=== PATIENT | male | born 1940 | race Caucasian/White ===

== ENCOUNTER 2018-06-19 16:44 | Inpatient (IN) | payer OTHER ==
[~2018-06-19] VITALS: Ht 180.3 cm; Wt 115.7 kg
[2018-06-19] MEDS ORDERED: ASPI81CH PO (17:05)
[2018-06-19] MEDS ORDERED: CARB100 (17:06)
[2018-06-19] MEDS ORDERED: CARBI50 (17:07)
[2018-06-19] MEDS ORDERED: VITAMIN B-121000 MCG PO (17:10)
[2018-06-19] MEDS ORDERED: CHOL10002 PO (17:10)
[2018-06-19] MEDS ORDERED: LORPSEER24 PO (17:11)
[2018-06-19] MEDS ORDERED: PREG200 PO (17:12)
[2018-06-19] MEDS ORDERED: SELE1.25 PO (17:13)
[2018-06-19] MEDS ORDERED: SILD50TA PO (17:15)
[2018-06-19] MEDS ORDERED: IBUP800 PO (17:18)
[2018-06-19] MEDS ORDERED: TERA5 PO (22:15)
[2018-06-19 22:36] LABS: Source, Urine Clean Catch
[2018-06-19 22:39] LABS: Blood, Urine 1+ (Neg); Glucose Qualitative, Urine Neg (Neg); Ketones, Urine 1+ (Neg); Leukocyte Esterase, Urine 1+ (Neg); Nitrite, Urine Pos (Neg); Protein, Urine 2+ (Neg); Specific Gravity, Urine 1.015 (1.003-1.022); Urobilinogen, Urine 4+ (Normal)
[2018-06-19 22:41] LABS: Bilirubin, Urine 2+ (Neg); Color, Urine Amber (P-Yellow)
[2018-06-19 22:42] LABS: Appearance, Urine Hazy (Clear)
[2018-06-19 22:45] LABS: Bacteria Mod /hpf; Red Blood Cells, Urine 0-2 /hpf (0-2); Squamous Epithelial Cells Not Seen /hpf (Few); White Blood Cells, Urine 0-2 /hpf (0-5)
[2018-06-20 04:21] LABS: Hematocrit 39.7 % (37.0-53.0); Hemoglobin 14.1 g/dL (13.5-17.5); Mean Corpuscular HGB 33.1 pg (26.0-34.0); Mean Corpuscular HGB Conc 35.5 g/dL (31.5-36.5); Mean Corpuscular Volume 93 fL (80-100); Mean Platelet Volume 10.6 fL (9.1-12.4); Platelet Count 171 K/mm3 (150-400); RDW Coefficient Variation 13.2 % (11.7-14.2); RDW Standard Deviation 44.8 fL (35.1-46.3); Red Blood Cell Count 4.26 M/mm3 (4.30-5.90); White Blood Cell Count 13.13 K/mm3 (4.00-11.30)
[2018-06-20 04:46] LABS: Alanine Aminotransfer (ALT/SGP 26 U/L (12-78); Albumin, Blood 2.9 g/dL (3.4-5.0); Albumin/Globulin Ratio 0.9 (0.8-1.8); Alk Phos 130 U/L (50-136); Anion Gap 9 mmol/L (6-16); Aspartate Aminotrans (AST/SGOT 109 U/L (12-37); Bilirubin, Total 7.8 mg/dL (0.1-1.0); Blood Urea Nitrogen 21 mg/dL (8-24); Bun/Creatinine Ratio 19.4 (12.0-20.0); CO2, Blood 24 mmol/L (21-32); Calcium, Blood 7.9 mg/dL (8.5-10.1); Chloride, Blood 106 mmol/L (98-108); Creatinine, Blood 1.08 mg/dL (0.60-1.20); Globulin, Blood 3.3 g/dL (2.2-4.0); Glomerular Filtration Rate >60 (60-); Glucose, Blood 126 mg/dL (70-99); Potassium, Blood 3.6 mmol/L (3.5-5.5); Sodium, Blood 139 mmol/L (136-145); Total Protein, Blood 6.2 g/dL (6.4-8.2)
[2018-06-20 05:06] LABS: BAND PERCENT MAN 20 % (0-8); BASOPHILS PERCENT MAN 0 % (0-2); EOSINOPHILS PERCENT MAN 0 % (0-6); LYMPHOCYTES ABSOLUTE MAN 0.26 K/mm3 (0.84-5.20); LYMPHOCYTES PERCENT MAN 2 % (21-46); MONOCYTES ABSOLUTE MAN 0.26 K/mm3 (0.16-1.47); MONOCYTES PERCENT MAN 2 % (4-13); SEG NEUTROPHILS PERCENT MAN 76 % (41-73); TOTAL CELLS COUNTED 100
== END 2018-06-20 18:56 | disposition short-term general hospital (02) | DRG 446 ==
LOC: ER 16:44 → SURS 20:45 → ENPENDDIS 06-20 16:38 → SURS 06-20 18:56
PROVIDERS: Nurse Practitioner Acute Care
DX: K80.20 Calculus of gallbladder without cholecystitis without obstruction (principal); G47.33 Obstructive sleep apnea (adult) (pediatric); G20 Parkinson's disease; G62.9 Polyneuropathy, unspecified; E66.9 Obesity, unspecified; Z68.33 Body mass index [BMI] 33.0-33.9, adult; Z79.82 Long term (current) use of aspirin; Z79.899 Other long term (current) drug therapy; Z88.0 Allergy status to penicillin; Z87.891 Personal history of nicotine dependence
CPT/HCPCS: 36415; 76705; 80053; 81001; 83605; 83690; 85025; 87040; 87086; 94762; 96365; 96367; 96375; 99285-25; J0697; J0744; J2060; J3010; J7030

== ENCOUNTER 2021-05-23 14:49 | Emergency (ER) | payer OTHER ==
[~2021-05-23] VITALS: Ht 177.8 cm; Wt 108.9 kg
[~2021-05-23 14:49] MED LIST: ASPI81CH PO; CARB100; CARBI50; CHOL10002 PO; IBUP800 PO; LORPSEER24 PO; PREG200 PO; SELE1.25 PO; SILD50TA PO; TERA5 PO; VITAMIN B-121000 MCG PO; Vibramycin100 MG PO
== END 2021-05-23 18:50 | disposition home or self-care (01) ==
LOC: ER 14:49
DX: M25.552 Pain in left hip (principal); S50.312A Abrasion of left elbow, initial encounter; S60.812A Abrasion of left wrist, initial encounter; S80.212A Abrasion, left knee, initial encounter; S61.411A Laceration without foreign body of right hand, initial encounter; G20 Parkinson's disease; G62.9 Polyneuropathy, unspecified; Z87.891 Personal history of nicotine dependence; Z88.0 Allergy status to penicillin; Z79.82 Long term (current) use of aspirin; Z79.899 Other long term (current) drug therapy; Z96.642 Presence of left artificial hip joint; V43.53XA Car driver injured in collision with pick-up truck in traffic accident, initial encounter; Y92.410 Unspecified street and highway as the place of occurrence of the external cause
CPT/HCPCS: 73502; 99283-25; A9270

== ENCOUNTER 2021-07-05 12:08 | Emergency (ER) | payer OTHER ==
[~2021-07-05] VITALS: Ht 180.3 cm; Wt 108.9 kg
[2021-07-05 13:18] LABS: BASOPHILS ABSOLUTE AUTO 0.05 K/mm3 (0.00-0.23); BASOPHILS PERCENT AUTO 1 % (0-2); EOSINOPHILS ABSOLUTE AUTO 0.28 K/mm3 (0.00-0.68); EOSINOPHILS PERCENT AUTO 4 % (0-6); Hematocrit 30.4 % (37.0-53.0); Hemoglobin 10.4 g/dL (13.5-17.5); IMMATURE GRAN ABSOLUTE AUTO 0.05 K/mm3 (0.00-0.10); IMMATURE GRAN PERCENT AUTO 1 % (0-1); LYMPHOCYTES ABSOLUTE AUTO 0.93 K/mm3 (0.84-5.20); LYMPHOCYTES PERCENT AUTO 14 % (21-46); MONOCYTES ABSOLUTE AUTO 0.45 K/mm3 (0.16-1.47); MONOCYTES PERCENT AUTO 7 % (4-13); Mean Corpuscular HGB 33.7 pg (26.0-34.0); Mean Corpuscular HGB Conc 34.2 g/dL (31.5-36.5); Mean Corpuscular Volume 98 fL (80-100); Mean Platelet Volume 10.8 fL (9.1-12.4); NEUTROPHILS ABSOLUTE AUTO 4.78 K/mm3 (1.96-9.15); NEUTROPHILS PERCENT AUTO 73 % (41-73); Platelet Count 199 K/mm3 (150-400); RDW Coefficient Variation 13.5 % (11.7-14.2); RDW Standard Deviation 48.6 fL (35.1-46.3); Red Blood Cell Count 3.09 M/mm3 (4.30-5.90); White Blood Cell Count 6.54 K/mm3 (4.00-11.30)
[2021-07-05 13:41] LABS: Alanine Aminotransfer (ALT/SGP 7 U/L (12-78); Albumin/Globulin Ratio 0.9 (0.8-1.8); Alk Phos 126 U/L (50-136); Anion Gap 4 mmol/L (6-16); Aspartate Aminotrans (AST/SGOT 13 U/L (12-37); Bilirubin, Total 0.8 mg/dL (0.1-1.0); Blood Urea Nitrogen 53 mg/dL (8-24); Bun/Creatinine Ratio 62.1 (12.0-20.0); CO2, Blood 24 mmol/L (21-32); Calcium, Blood 8.5 mg/dL (8.5-10.1); Chloride, Blood 115 mmol/L (98-108); Creatinine, Blood 0.85 mg/dL (0.60-1.20); Globulin, Blood 3.5 g/dL (2.2-4.0); Glomerular Filtration Rate >60 (60-); Glucose, Blood 148 mg/dL (70-99); Potassium, Blood 4.1 mmol/L (3.5-5.5); Sodium, Blood 143 mmol/L (136-145); Total Protein, Blood 6.5 g/dL (6.4-8.2)
[2021-07-06] MEDS ORDERED: Ropinirole HCl1 MG PO (11:49)
== END 2021-07-05 18:25 | disposition home or self-care (01) ==
LOC: ER 12:08
PROVIDERS: Student in an Organized Health Care Education/Training Program
DX: G20 Parkinson's disease (principal); G62.9 Polyneuropathy, unspecified; R26.9 Unspecified abnormalities of gait and mobility; Z74.09 Other reduced mobility; Z88.0 Allergy status to penicillin; Z79.899 Other long term (current) drug therapy; Z79.82 Long term (current) use of aspirin
CPT/HCPCS: 70450; 80053; 83735; 85025; 93005; 93010; 99285-25

== ENCOUNTER 2022-04-13 10:33 | Day surgery (SDC) | payer OTHER ==
[~2022-04-13] VITALS: Ht 177.8 cm; Wt 111.5 kg
[~2022-04-13 10:33] MED LIST changes: +FINA5 PO; +OMEGA-3 1,0501 EACH PO; +ROPI.25 PO; +Ropinirole HCl1 MG PO
--- NOTE | 2022-04-13 11:04 | NUR ---
04/13/22 1104 Janis Lam 1059, [place]SA[place] 1053 TO LEFT EYE BY [facility].NE
== END 2022-04-13 12:23 | disposition home or self-care (01) ==
LOC: ORSCSDS 10:33
PROVIDERS: Ophthalmology
PROC: 08RK3JZ Replacement of Left Lens with Synthetic Substitute, Percutaneous Approach (ICD-10-PCS; principal; 2022-04-13 12:00)
DX: H25.13 Age-related nuclear cataract, bilateral (principal); H52.202 Unspecified astigmatism, left eye; Z87.891 Personal history of nicotine dependence; G47.33 Obstructive sleep apnea (adult) (pediatric); I10 Essential (primary) hypertension; G20 Parkinson's disease; E66.9 Obesity, unspecified; Z68.35 Body mass index [BMI] 35.0-35.9, adult; Z79.899 Other long term (current) drug therapy
CPT/HCPCS: J2001; J2250; J3010; J3301; J7040; V2632

== ENCOUNTER 2022-05-30 08:25 | Day surgery (SDC) | payer OTHER ==
[~2022-05-30] VITALS: Ht 177.8 cm; Wt 111.2 kg
[2022-05-30] MEDS ORDERED: MELATONIN5 M1 PO (09:19)
[2022-05-30] MEDS ORDERED: FERSU300 PO (09:19)
[2022-05-30] MEDS ORDERED: ASCO500 PO (09:20)
--- NOTE | 2022-05-30 09:27 | NUR ---
05/30/22 0927 Hima Liz CALL CLEMENTE WITHIN REACH. TETRACAINE AT 0921 IN RIGHT EYE AND PLEDGETT AT 0923
== END 2022-05-30 11:07 | disposition home or self-care (01) ==
LOC: ORSCSDS 08:25
PROVIDERS: Ophthalmology
PROC: 08RJ3JZ Replacement of Right Lens with Synthetic Substitute, Percutaneous Approach (ICD-10-PCS; principal; 2022-05-30 10:00)
DX: H25.11 Age-related nuclear cataract, right eye (principal); H52.201 Unspecified astigmatism, right eye; Z87.891 Personal history of nicotine dependence; G47.33 Obstructive sleep apnea (adult) (pediatric); Z79.899 Other long term (current) drug therapy; E66.9 Obesity, unspecified; Z68.35 Body mass index [BMI] 35.0-35.9, adult
CPT/HCPCS: J2001; J2250; J3010; J3301; J7040; V2632

== ENCOUNTER 2022-09-28 10:42 | Inpatient (IN) | payer OTHER ==
[~2022-09-28] VITALS: Ht 182.9 cm; Wt 102.9 kg
[~2022-09-28 10:42] MED LIST changes: +ASCO500 PO; +FERSU300 PO; +MELATONIN5 M1 PO
[2022-09-28 11:45] LABS: BASOPHILS ABSOLUTE AUTO 0.05 K/mm3 (0.00-0.23); BASOPHILS PERCENT AUTO 0 % (0-2); EOSINOPHILS ABSOLUTE AUTO 0.02 K/mm3 (0.00-0.68); EOSINOPHILS PERCENT AUTO 0 % (0-6); Hematocrit 49.6 % (37.0-53.0); Hemoglobin 17.6 g/dL (13.5-17.5); IMMATURE GRAN ABSOLUTE AUTO 0.07 K/mm3 (0.00-0.10); IMMATURE GRAN PERCENT AUTO 1 % (0-1); LYMPHOCYTES ABSOLUTE AUTO 1.04 K/mm3 (0.84-5.20); LYMPHOCYTES PERCENT AUTO 8 % (21-46); MONOCYTES ABSOLUTE AUTO 0.94 K/mm3 (0.16-1.47); MONOCYTES PERCENT AUTO 8 % (4-13); Mean Corpuscular HGB 32.9 pg (26.0-34.0); Mean Corpuscular HGB Conc 35.5 g/dL (31.5-36.5); Mean Corpuscular Volume 93 fL (80-100); Mean Platelet Volume 10.1 fL (9.1-12.4); NEUTROPHILS ABSOLUTE AUTO 10.43 K/mm3 (1.96-9.15); NEUTROPHILS PERCENT AUTO 83 % (41-73); Platelet Count 246 K/mm3 (150-400); RDW Coefficient Variation 13.8 % (11.7-14.2); Red Blood Cell Count 5.35 M/mm3 (4.30-5.90); White Blood Cell Count 12.55 K/mm3 (4.00-11.30)
[2022-09-28 11:53] LABS: Base Excess Venous 0.3 mmol/L; Bicarbonate Venous 24.6 mmol/L (24.0-30.0); pH Blood Venous 7.41 (7.34-7.37)
[2022-09-28 12:26] LABS: Magnesium, Blood 2.1 mg/dL (1.6-2.4)
[2022-09-28 12:28] LABS: Albumin, Blood 3.6 g/dL (3.4-5.0); Bilirubin, Total 1.5 mg/dL (0.1-1.0); Bun/Creatinine Ratio 21.3 (12.0-20.0); Creatinine, Blood 0.94 mg/dL (0.60-1.20); Globulin, Blood 3.5 g/dL (2.2-4.0); Potassium, Blood 3.9 mmol/L (3.5-5.5); Thyroid Stimulating Hormone 2.54 uIU/mL (0.360-4.800); Total Protein, Blood 7.1 g/dL (6.4-8.2)
[2022-09-28 12:29] LABS: Influenza A, PCR NEGATIVE (NEGATIVE); Influenza B, PCR NEGATIVE (NEGATIVE); Resp Syncytial Virus, PCR NEGATIVE (NEGATIVE); SARS-Cov-2 (COVID-19) PCR, MMC NEGATIVE (NEGATIVE)
[2022-09-28 13:01] LABS: Source, Urine Straight Cath
[2022-09-28 13:09] LABS: Appearance, Urine Clear (Clear); Bilirubin, Urine Neg (Neg); Blood, Urine 3+ (Neg); Color, Urine Amber (P-Yellow); Glucose Qualitative, Urine Neg (Neg); Ketones, Urine 2+ (Neg); Leukocyte Esterase, Urine Neg (Neg); Nitrite, Urine Neg (Neg); Protein, Urine 3+ (Neg); Specific Gravity, Urine 1.025 (1.003-1.022); Urobilinogen, Urine 1+ (Normal)
[2022-09-28 13:28] LABS: Red Blood Cells, Urine 0-2 /hpf (0-2); White Blood Cells, Urine 0-2 /hpf (0-5)
[2022-09-28 13:29] LABS: Amorphous Light (0-Heavy); Bacteria Mod /hpf; Squamous Epithelial Cells Not Seen /hpf (Few)
[2022-09-29 04:03] LABS: BASOPHILS ABSOLUTE AUTO 0.05 K/mm3 (0.00-0.23); BASOPHILS PERCENT AUTO 1 % (0-2); EOSINOPHILS ABSOLUTE AUTO 0.07 K/mm3 (0.00-0.68); EOSINOPHILS PERCENT AUTO 1 % (0-6); Hematocrit 46.7 % (37.0-53.0); Hemoglobin 17.1 g/dL (13.5-17.5); IMMATURE GRAN ABSOLUTE AUTO 0.07 K/mm3 (0.00-0.10); IMMATURE GRAN PERCENT AUTO 1 % (0-1); LYMPHOCYTES ABSOLUTE AUTO 0.97 K/mm3 (0.84-5.20); LYMPHOCYTES PERCENT AUTO 10 % (21-46); MONOCYTES PERCENT AUTO 9 % (4-13); Mean Corpuscular HGB 33.7 pg (26.0-34.0); Mean Corpuscular HGB Conc 36.6 g/dL (31.5-36.5); Mean Corpuscular Volume 92 fL (80-100); Mean Platelet Volume 10.7 fL (9.1-12.4); NEUTROPHILS ABSOLUTE AUTO 7.64 K/mm3 (1.96-9.15); NEUTROPHILS PERCENT AUTO 79 % (41-73); Platelet Count 228 K/mm3 (150-400); RDW Coefficient Variation 13.4 % (11.7-14.2); RDW Standard Deviation 45.9 fL (35.1-46.3); Red Blood Cell Count 5.08 M/mm3 (4.30-5.90)
[2022-09-29 04:09] LABS: Source, Urine Foley catheter
[2022-09-29 04:13] LABS: Bilirubin, Urine Neg (Neg); Blood, Urine 4+ (Neg); Glucose Qualitative, Urine Neg (Neg); Ketones, Urine 3+ (Neg); Leukocyte Esterase, Urine Neg (Neg); Nitrite, Urine Neg (Neg); Protein, Urine 2+ (Neg); Urobilinogen, Urine 2+ (Normal)
[2022-09-29 05:14] LABS: Bun/Creatinine Ratio 17.8 (12.0-20.0); Calcium, Blood 8.9 mg/dL (8.5-10.1); Creatinine, Blood 0.96 mg/dL (0.60-1.20)
[2022-09-29 05:21] LABS: Appearance, Urine Clear (Clear); Color, Urine Yellow (P-Yellow)
[2022-09-29 05:22] LABS: Bacteria Few /hpf; Squamous Epithelial Cells Rare /hpf (Few); White Blood Cells, Urine 0-2 /hpf (0-5)
--- NOTE | 2022-09-29 16:17 | NUR ---
Pt. is in ED and is mostly not responsive. Pt. attempts to get words out, but only grunts, and doesn;t seem to focus. Preayed with Pt. Will continue to be available to Pt.
--- NOTE | 2022-09-29 23:01 | NUR ---
PT ARRIVED TO MEDICAL FLOOR AFTER RECEIVING REPORT FROM ED RN ANIBAL. PT SNORING AND HARDLY RESPONDS WHEN INTRODUCED TO STAFF AND DOES NOT OPEN EYES. PT CHANGED GOWNS AND ATTENDS CHANGED. 2-RN SKIN ASSESSMENT PERFORMED WITH DESTINI SALDANA RN. PT CURRENTLY NPO INCLUDING MEDS D/T ASPIRATION RISK. LR RUNNING @ 75mL/hr. WILL CLARIFY MEDICATION ORDERS WITH PROVIDER. BED ALARM ACTIVATED AND BED RAILS UP, BED IN LOW POSITION AND CALL LIGHT IN REACH. V/S OBTAINED BY TAD MARINO CNA; LOW-GRADE TEMP OF 100.1 AND BP 150/78.
[2022-09-30 05:14] LABS: BASOPHILS ABSOLUTE AUTO 0.04 K/mm3 (0.00-0.23); BASOPHILS PERCENT AUTO 0 % (0-2); EOSINOPHILS ABSOLUTE AUTO 0.03 K/mm3 (0.00-0.68); EOSINOPHILS PERCENT AUTO 0 % (0-6); Hematocrit 48.1 % (37.0-53.0); Hemoglobin 17.6 g/dL (13.5-17.5); IMMATURE GRAN ABSOLUTE AUTO 0.07 K/mm3 (0.00-0.10); IMMATURE GRAN PERCENT AUTO 1 % (0-1); LYMPHOCYTES ABSOLUTE AUTO 1.12 K/mm3 (0.84-5.20); LYMPHOCYTES PERCENT AUTO 9 % (21-46); MONOCYTES ABSOLUTE AUTO 1.01 K/mm3 (0.16-1.47); MONOCYTES PERCENT AUTO 8 % (4-13); Mean Corpuscular HGB 33.4 pg (26.0-34.0); Mean Corpuscular HGB Conc 36.6 g/dL (31.5-36.5); Mean Corpuscular Volume 91 fL (80-100); Mean Platelet Volume 10.6 fL (9.1-12.4); NEUTROPHILS ABSOLUTE AUTO 10.64 K/mm3 (1.96-9.15); NEUTROPHILS PERCENT AUTO 83 % (41-73); Platelet Count 239 K/mm3 (150-400); RDW Coefficient Variation 13.5 % (11.7-14.2); Red Blood Cell Count 5.27 M/mm3 (4.30-5.90); White Blood Cell Count 12.91 K/mm3 (4.00-11.30)
[2022-09-30 05:43] LABS: Albumin, Blood 3.1 g/dL (3.4-5.0); Albumin/Globulin Ratio 0.8 (0.8-1.8); Bilirubin, Total 2.2 mg/dL (0.1-1.0); Bun/Creatinine Ratio 23.3 (12.0-20.0); Calcium, Blood 9.1 mg/dL (8.5-10.1); Creatinine, Blood 0.9 mg/dL (0.60-1.20); Globulin, Blood 3.7 g/dL (2.2-4.0); Potassium, Blood 3.7 mmol/L (3.5-5.5); Total Protein, Blood 6.8 g/dL (6.4-8.2)
--- NOTE | 2022-09-30 06:03 | NUR ---
TANK CLEANER SUMMARY: ORIENTED TO SELF. ALERT PART OF THE TIME; MOSTLY SLEEPING. AWAKE FOR A SHORT AMOUNT OF TIME A COUPLE OF HOURS AFTER BEING ADMITTED DURING WHICH TIME HE CONTINUOUSLY ASKED FOR ASSISTANCE TO GET OUT OF BED TO FIND HIS . CONFUSED. HAS NOT HAD MEDS D/T ED DOC STATING TO HOLD ALL PO MEDS UNTIL SPEECH EVAL DONE THIS AM. LOW-GRADE FEVER NOTED BUT WAS NOT COOPERATIVE WITH ADMINISTRATION OF RECTAL APAP. LR @75mL/hr. WILL REPORT TO ONCOMING RN.
--- NOTE | 2022-09-30 18:16 | NUR ---
PT AOX1-2 WITH CONFUSION AND HALUCINATIONS. PT WILL STARE UP AND CEILING AND THINK HE CAN SEE SOMETHING OR HE TALKS ABOUT NEEDING TO BUY A CARE. PT IS TURNED EVERY COUPLE HOURS FOR REPOSITION. PT HAD HIGH BPs TODAY AND HAS BEEN TREATED PER EMAR. THIS HAS BEEN EFFECTIVE. PT ALSO HAD TEMP 100.6 AND WAS TREATED PER EMAR. NO ORAL MEDS HAVE BEEN GIVEN TODAY DUE TO ASPIRATION RISKS HE FALLS ASLEEP VERY FAST AND DOES NOT STAY ALERT ENOUGH TO SWALLOW SAFELY. PT WAS COUGHING ON WATER ALONE WITH ST. BED ALARM IS IN PLACE WITH CALL LIGHT IN REACH WILL CONTINUE TO MONITOR.
--- NOTE | 2022-10-01 04:20 | NUR ---
SHIFT SUMMARY; PT REMAINS AN ASPIRATION RISK THIS PM. PT WAKES UP FOR A MOMENT WHEN YOU SAY HIS NAME BEFORE HE QUICKLY CLOSES HIS EYES AND FALLS BACK ASLEEP. PT IS AXO X1-2. PT DOES NOT USE CALL LIGHT. PT REPOSITIONED MULTIPLE TIMES THROUGHOUT THE NIGHT. PT REMAINS STABLE ON RA. PT WITH VISUAL HALLUCINATIONS THIS PM, STATES "THERE IS A BEAR ON THE HILL, WATCH OUT". PT CURRENLTY RESTING IN BED WITH THE BED IN THE LOWEST POSITION, LR RUNNING AT 75ML/HR AND THE CALL LIGHT AT BEDSIDE.
[2022-10-01 05:25] LABS: BASOPHILS ABSOLUTE AUTO 0.05 K/mm3 (0.00-0.23); BASOPHILS PERCENT AUTO 0 % (0-2); EOSINOPHILS ABSOLUTE AUTO 0.04 K/mm3 (0.00-0.68); EOSINOPHILS PERCENT AUTO 0 % (0-6); Hematocrit 47.3 % (37.0-53.0); Hemoglobin 17.1 g/dL (13.5-17.5); IMMATURE GRAN ABSOLUTE AUTO 0.08 K/mm3 (0.00-0.10); IMMATURE GRAN PERCENT AUTO 1 % (0-1); LYMPHOCYTES ABSOLUTE AUTO 0.83 K/mm3 (0.84-5.20); LYMPHOCYTES PERCENT AUTO 7 % (21-46); MONOCYTES ABSOLUTE AUTO 1.16 K/mm3 (0.16-1.47); MONOCYTES PERCENT AUTO 10 % (4-13); Mean Corpuscular HGB 33.2 pg (26.0-34.0); Mean Corpuscular HGB Conc 36.2 g/dL (31.5-36.5); Mean Corpuscular Volume 92 fL (80-100); Mean Platelet Volume 10.3 fL (9.1-12.4); NEUTROPHILS ABSOLUTE AUTO 9.39 K/mm3 (1.96-9.15); NEUTROPHILS PERCENT AUTO 81 % (41-73); Platelet Count 232 K/mm3 (150-400); RDW Coefficient Variation 13.5 % (11.7-14.2); RDW Standard Deviation 46.5 fL (35.1-46.3); Red Blood Cell Count 5.15 M/mm3 (4.30-5.90); White Blood Cell Count 11.55 K/mm3 (4.00-11.30)
[2022-10-01 05:45] LABS: Bun/Creatinine Ratio 29.2 (12.0-20.0); Calcium, Blood 9.2 mg/dL (8.5-10.1); Creatinine, Blood 0.86 mg/dL (0.60-1.20); Potassium, Blood 3.6 mmol/L (3.5-5.5)
--- NOTE | 2022-10-01 16:45 | NUR ---
NO ACUTE CHANGES, PT AOX1 AND CONTINUES TO HAVE CONFUSION AND HALLUCINATIONS MISTAKING CAREGIVERS FOR SOMEONE IN HIS PAST. PT IS REPOSTIONED Q2 HRS AND IS INCONTENT. PT WAS HAS BED ALARM IN PLACE AND CALL LIGHT WITHIN REACH WILL CONTINUE TO MONITOR. PT HAS BEEN HIGH AND IS TREATED PER EMAR.
--- NOTE | 2022-10-02 04:35 | NUR ---
SHIFT SUMMARY; NO ACUTE CHANGES OVERNIGHT. PT WAS FEBRILE AT THE BEGINNING OF SHIFT 100.6, MEDICATED WITH A TYLENOL SUPPOSITORY. THE PTS LAST TEMPERATURE WAS 99.8. PT IS STILL UNABLE TO DEMONSTARTE THE ABILITY TO SWALLOW AND OR TAKE IN ANY PO INTAKE, THEREFORE PT REMAINS NPO. THE PT WAS TURNED FREQUENTLY DUE TO THE PTS INABILITY TO CONTROL HIS OWN BODY POSITION. THE PTS LEGS JERK OFETN, OCCASIONALLY THE PTS ARMS JERK WELL. NS REMAINS RUNNING AT 100 MLS AN HOUR. PT STILL HAS NONSENSICAL SPEECH, REFERS TO STAFF DIFFERENT FAMILY MEMBERS. A HEAD SCREEN WORKER IS TO DISCUSS DISCHARGE PLAN WITH PTS AND SON LATER TODAY. PT IS CURRENTLY RESTING IN BED WITH THE BED IN THE LOWEST POSITION AND THE CALL LIGHT AT BEDSIDE. REPORT TO FOLLOW TO ONCOMING RN.
[2022-10-02 05:30] LABS: BASOPHILS ABSOLUTE AUTO 0.04 K/mm3 (0.00-0.23); BASOPHILS PERCENT AUTO 0 % (0-2); EOSINOPHILS ABSOLUTE AUTO 0.06 K/mm3 (0.00-0.68); EOSINOPHILS PERCENT AUTO 1 % (0-6); Hematocrit 44.4 % (37.0-53.0); IMMATURE GRAN ABSOLUTE AUTO 0.07 K/mm3 (0.00-0.10); IMMATURE GRAN PERCENT AUTO 1 % (0-1); LYMPHOCYTES ABSOLUTE AUTO 0.79 K/mm3 (0.84-5.20); LYMPHOCYTES PERCENT AUTO 8 % (21-46); MONOCYTES ABSOLUTE AUTO 1.03 K/mm3 (0.16-1.47); MONOCYTES PERCENT AUTO 11 % (4-13); Mean Corpuscular HGB 33.3 pg (26.0-34.0); Mean Corpuscular Volume 93 fL (80-100); Mean Platelet Volume 10.5 fL (9.1-12.4); NEUTROPHILS ABSOLUTE AUTO 7.86 K/mm3 (1.96-9.15); NEUTROPHILS PERCENT AUTO 80 % (41-73); Platelet Count 228 K/mm3 (150-400); RDW Coefficient Variation 13.6 % (11.7-14.2); RDW Standard Deviation 46.5 fL (35.1-46.3); White Blood Cell Count 9.85 K/mm3 (4.00-11.30)
[2022-10-02 05:50] LABS: Bun/Creatinine Ratio 38.3 (12.0-20.0); Calcium, Blood 8.6 mg/dL (8.5-10.1); Creatinine, Blood 0.73 mg/dL (0.60-1.20); Potassium, Blood 3.6 mmol/L (3.5-5.5)
--- NOTE | 2022-10-02 11:28 | NUR ---
Upon receiving a referral for spiritual care, I visit pt. Pt's spouse, Amira, and son Anthony are bedside. They explain about pt's medical problems, their family dynamics and their strong Shinto deidra. Pt is engaged minimally in the conversation but is very present. They also talk about their concerns about placement options and voice their desire to talk to care management. I provide therapeutic listening and prayer. I then talk with Research Program Manager Maci about the family's request to receive a consult from her. I report back to family about Care Management heading their direction soon. Pt and family show signs of being comforted and encouraged. I will cotninue to remain available to patient and fmaily.
--- NOTE | 2022-10-02 14:27 | NUR ---
Pt was brought in by family on 09/29 with worsening weakness, confusion, and being unable to provide adequate care for him. Pt has Parkinsons, possible dementia, peripheral neuropathy, sleep apnea. Pt is currently NPO due to somnolence; being unable to participate in [employer]. He is also bedbound, unable to swallow medications. He is also unable to follow commands or work with PT/OT. He is no longer ambulating, speaking or eating. Pt appears appropriate for hospice. Unsure if pt's increased stiffness/Lack of movement is due to inability to swallow Carbidopa/levidopa. Dr. Perez ordered disolvable tablets called Parcopa 25mg/100mg. Adviced bedside RN to place in 1mL of water and and administer SL. [facility].
--- NOTE | 2022-10-02 16:52 | NUR ---
SHIFT SUMMARY PT TRANSITIONED TO COMFORT CARE THIS SHIFT. IV FLUIDS DCED. PLACEMENT [facility]ING [facility]. PT MOUTH VERY DRY. MOUTH MOSTURIZER AND ORAL CARE COMPLETED. CARBIDOPA/LEVADOPA DISOLVING TAB HAD DIFFICULTY DISOLVING UNDER THE TONGUE. PT LETHARGIC MOST OF THE DAY. WAKING UP MOST THIS AM, BUT FAILED HIS SWALLOW EVAL. OCCUPATIONAL THERAPY UNABLE TO WORK WITH PT DUE TO FATIGUE. THERAPIES NOW DCED DUE TO COMFORT CARE. PT REPOSITIONED Q2H. INCONT OF URINE. FEVER THIS AFTERNOON TREATED WITH TYLENOL SUPPOSITORY WITH EFFECTIVNESS. FAMILY IN ROOM T/O MOST OF THE DAY. CALL LIGHT IN REACH. PT RESTING IN BED. APPEARS COMFORTABLE & RELAXED.
--- NOTE | 2022-10-03 06:12 | NUR ---
SHIFT SUMMARY PT HAS BEEN UP MOST OF THE NIGHT. AOX2-3. CALLS AND USE CALL LIGHT APPROPRIATELY. VOIDING WITH ATTENDS IN PLACE. PT HAD BM. PT HAD 2 APPLE JUICE, 1 CRANBERRY JUICE AND 1 VANILA ENSURE. HE WIDE AWAKE MOST OF THE NIGHT. COMFORT CARE. DENIES PAIN. REPOSITIONED Q2. INTERMITTENTLY HAS DRY COUGH. CALL LIGHT WITHIN REACH. WILL PROVIDE REPORT TO ONCOMING NURSE.E
--- NOTE | 2022-10-03 16:34 | NUR ---
PT SITTING UP IN BED WITH VISITOR AT THE BEDSIDE. PT FACE IS RELAXED AND BREATHING UNLABORED AND APPEARS TO BE COMFORTABLE. PT REPOSITIONED IN BEDM GIVEN PO FLUIDS AND MOIST SWABS TO MOUTH. NO NEEDS, CONCERNS OR SYMPTOMS AT THIS TIME. CALL PLACED TO NURSE, PT APPEARS TO BE MANAGED, SYMPTOMS MANAGED AT THIS TIME.
--- NOTE | 2022-10-03 16:38 | NUR ---
PT ALERT, SITTING UP IN BED AND ASKING QUESTIONS ABOUT HOW HE GOT TO THE HOSPITAL. FRIEND AT THE BEDSIDE INFORMS PT THAT HE WAS BROUGHT TO THE HOSPITAL BY EMS AFTER FALLING OUT OF HIS CHAIR. PT HAS NO MEMORY OF THIS AND DENIES FALLING OUT OF HIS CHAIR. PT APPEARS SLIGHTLY CONFUSED, BUT ASKING APPROP QUESTIONS AND FOLLOWS COMMANDS. PT IS REORIENTED RECETN EVENTS AND WHERE HE IS.
--- NOTE | 2022-10-04 05:37 | NUR ---
SHIFT SUMMARY NOC PT ON COMFORT CARE. PT WAS PLESANTLY CONFUSED. A/O X 2-3 AT TIMES. PT HAD NO C/O OF PAIN DURING SHIFT. PT GIVEN ATIVAN TO AIDE SLEEP. PT HAS PENDING COVID-19 RESULTS PENDING SO [facility] CAN [facility]. PT IS CURRENTLY RESTING WITH BED IN LOWEST POSITION, AND CALL LIGHT WITHIN REACH.
[2022-10-04 06:20] LABS: SARS-Cov-2 (COVID-19) PCR, MMC NEGATIVE (NEGATIVE)
--- NOTE | 2022-10-04 10:00 | NUR ---
PT RESTING COMF, NO NEEDS AND SYMPTOMS ARE MANAGED. PT IS TO BE DCD THIS AM.
--- NOTE | 2022-10-04 10:07 | NUR ---
DISCHARGE NOTE PT TRANSFERRED TO [facility] VIA [facility]. REPORT GIVEN TO EMS. REPORT ALSO GIVEN TO ESTUARDO SCHAEFER, AT THE [facility] PERSONAL BELONGING WERE SENT WITH THE PT ALONG WITH NECESSARY DOCUMENTATION. NO IV PRESENT AT THE TIME OF TRANSFER.
[2022-10-04] MEDS ORDERED: Acetaminophen650 M1 PR (10:14)
[2022-10-04] MEDS ORDERED: ATROPINE SULFATE2 M1 SL (10:15)
[2022-10-04] MEDS ORDERED: CARBIDOPA-LEVO1 EAC9 SL (10:17)
[2022-10-04] MEDS ORDERED: LORA1 PO (10:19)
[2022-10-04] MEDS ORDERED: ARTIFICIAL TEAR15 M6 BOTHEYES (10:20)
[2022-10-04] MEDS ORDERED: PROM12.5S PR (10:21)
[2022-10-04] MEDS ORDERED: TRANSDERM-SCOP1 EA10 TD (10:22)
== END 2022-10-04 10:03 | disposition hospice, home (50) | DRG 57 ==
LOC: ER 10:42 → MEDS 09-29 10:43 → ERHOLD 09-29 10:43 → MEDS 09-29 22:42
PROVIDERS: Emergency Medicine; Hospitalist; Internal Medicine; Student in an Organized Health Care Education/Training Program; ADMIT Internal Medicine
DX: G20 Parkinson's disease (principal); E87.0 Hyperosmolality and hypernatremia; G93.49 Other encephalopathy; E86.0 Dehydration; Z51.5 Encounter for palliative care; Z66 Do not resuscitate; I10 Essential (primary) hypertension; E87.5 Hyperkalemia; Z20.822 Contact with and (suspected) exposure to COVID-19; G62.9 Polyneuropathy, unspecified; H91.90 Unspecified hearing loss, unspecified ear; H54.7 Unspecified visual loss; F02.80 Dementia in other diseases classified elsewhere, unspecified severity, without behavioral disturbance, psychotic disturbance, mood disturbance, and anxiety; Z96.642 Presence of left artificial hip joint; W18.30XA Fall on same level, unspecified, initial encounter; G47.30 Sleep apnea, unspecified; D72.829 Elevated white blood cell count, unspecified; Z88.5 Allergy status to narcotic agent; Z88.0 Allergy status to penicillin; Z79.899 Other long term (current) drug therapy; Z98.890 Other specified postprocedural states; Z90.49 Acquired absence of other specified parts of digestive tract
CPT/HCPCS: 0241U; 36415; 70450; 71045; 72125; 80048; 80053; 81001; 82803; 83605; 83735; 83880; 84145; 84443; 85025; 87086; 92610; 93005; 93010; 96372; 96374; 99285-25; A9270; G0378; J0360; J0696; J1650; J7030; J7120; U0004